=== PATIENT | female | born 1985 | race Caucasian/White ===

== ENCOUNTER 2020-06-06 20:37 | Emergency (ER) | payer SELFPAY ==
[~2020-06-06] VITALS: Ht 170.2 cm; Wt 86.3 kg
--- NOTE | 2020-06-06 20:42 | PHYS DOC ---
Past History Past Surgical History: Hysterectomy General Adult HPI: HPI: ".. I was feeding he cow..s... and one of the bags did not break open.. so I jumped down off the tractor... and immediately heard a pop and got severe pain in my left knee. This was about 5pm.. and I have not been able to do anything to get relief..... I hurt really bad on the inside of my Lt knee..." Patient is a 34 year old female who presents with above hx and complaint of left knee injury. Patient has marked pain on palpation of medial collateral ligament of left knee. Can do straight leg lift. Distal neurovascular is equal to right leg. No upper leg tenderness. No lower leg tenderness. There is marked swelling. Unable to flex or extend because of pain. Patient denies other injury. Patient has not follow-up with primary since moving from [facility]. Patient denies any previous knee injury. Review of Systems: Review of Systems: Constitutional: Denies fever or chills Eyes: Denies change in visual acuity HENT: Denies nasal congestion or sore throat Respiratory: Denies cough or shortness of breath Cardiovascular: Denies chest pain or edema GI: Denies abdominal pain, nausea, vomiting, bloody stools or diarrhea : Denies dysuria Musculoskeletal: Complains of severe left knee pain Integument: Denies rash Neurologic: Denies headache, focal weakness or sensory changes Endocrine: Denies polyuria or polydipsia Lymphatic: Denies swollen glands Psychiatric: Denies depression or anxiety Family History: Family History: Noncontributory Current Medications: Current Meds: See nursing for home meds Allergies: Allergies: No known drug allergies Physical Exam: PE: Constitutional: Moderate acute distress, non-toxic appearance. Tearful HENT: Normocephalic, atraumatic, bilateral external ears normal, oropharynx moist, no oral exudates, nose normal. [] Eyes: PERRLA, EOMI, conjunctiva normal, no discharge. [] Neck: Normal range of motion, no tenderness, supple, no stridor. [] Cardiovascular: Tachycardia heart rate regular rhythm, no murmur [] Lungs & Thorax: Bilateral breath sounds equal apex on auscultation [] Abdomen: Bowel sounds decreased, soft, no tenderness, no masses, no pulsatile masses. Old surgery scars Skin: Warm, dry, no erythema, no rash. [] Back: No tenderness, no CVA tenderness. [] Extremities: No tenderness, no cyanosis, no clubbing, ROM intact, no edema. Except findings in left knee as per HPI Neurologic: Alert and oriented X 3, normal motor function, normal sensory function, no focal deficits noted. [] Psychologic: Affect anxious, judgement normal, mood normal. [] EKG: EKG: [] Radiology/Procedures: Radiology/Procedures: [address] [address] IMAGING REPORT Signed PATIENT: MITCHEL GUSTAFSON ACCOUNT: [id number] : 1985 LOCATION: ER AGE: 34 SEX: F EXAM STATUS: DEP ER ORD. PHYSICIAN: ARNULFO OCRDOVA MD REASON: Left knee injury, medial and posterior pain PROCEDURE: KNEE LEFT 4V EXAM: AP, oblique, lateral and tangential patellar views left knee DATE: 06/06/2020 9:09 PM INDICATION: Reason: Left knee injury, medial and posterior pain / Spl. Instructions: / History: COMPARISON: No Prior FINDINGS: No evidence of acute fracture or dislocation. Joint spaces are preserved without significant degenerative/proliferative change. No joint effusion. Neutral patellar tracking. IMPRESSION: No evidence of acute fracture or dislocation. Electronically signed by: Josh Lott MD (06/06/2020 11:11 PM) [facility] DICTATED AND SIGNED BY: JOSH LOTT MD DATE: 06/06/20 7735 CC: ARNULFO CORDOVA MD; PCP,NO ~MTH0 0 My interpretation of x-ray showed no obvious displaced fracture. Does have significant edema. [] Heart Score: Risk Factors: Risk Factors: DM, Current or recent (<one month) smoker, HTN, HLP, family history of CAD, obesity. Risk Scores: Score 0 - 3: 2.5% MACE over next 6 weeks - Discharge Home Score 4 - 6: 20.3% MACE over next 6 weeks - Admit for Clinical Observation Score 7 - 10: 72.7% MACE over next 6 weeks - Early Invasive Strategies Course & Med Decision Making: Course & Med Decision Making Pertinent Labs and Imaging studies reviewed. (See chart for details) Distal neurovascular intact after application of splint. Patient use crutches. Patient elevate knee. Patient take Tylenol and ibuprofen for pain. For marked pain may take Vicoprofen up to 4 times a day. Patient to call for follow-up appointment in the orthopedic clinic at [place] [phone]. Return if any concerns. Impression: 1. Left knee sprain strain-medial collateral ligament tear [] Dragon Disclaimer: Dragon Disclaimer: This electronic medical record was generated, in whole or in part, using a voice recognition dictation system. Departure Departure: Referrals: PCP,NO (PCP) Scripts Hydrocodone/Ibuprofen (HYDROCODONE-IBUPROFEN 7.5-200 ) 1 Each Tablet 1 TAB PO PRN Q6HRS PRN for PAIN, #30 TAB 0 Refills Prov: ARNULFO CORDOVA MD 06/06/20 Cory Disclaimer This chart was dictated in whole or in part using Voice Recognition software in a busy, high-work load, and often noisy Emergency Department environment. It may contain unintended and wholly unrecognized errors or omissions. Dragon Disclaimer This chart was dictated in whole or in part using Voice Recognition software in a busy, high-work load, and often noisy Emergency Department environment. It may contain unintended and wholly unrecognized errors or omissions. Dragon Disclaimer This chart was dictated in whole or in part using Voice Recognition software in a busy, high-work load, and often noisy Emergency Department environment. It may contain unintended and wholly unrecognized errors or omissions. ARNULFO CORDOVA MD Jun 06, 2020 20:42
[2020-06-06] MEDS ORDERED: MORPHINE SULFATE 10 MG/ML SYRINGE. SQ ONE (21:00)
[2020-06-06] MEDS ORDERED: HYDR-1179 PO (21:47)
[2020-06-06 21:55] VITALS: BP 186/100
--- NOTE | 2020-06-06 23:13 | RAD ---
EXAM: AP, oblique, lateral and tangential patellar views left knee DATE: 06/06/2020 9:09 PM INDICATION: Reason: Left knee injury, medial and posterior pain / Spl. Instructions: / History: COMPARISON: No Prior FINDINGS: No evidence of acute fracture or dislocation. Joint spaces are preserved without significant degenera tive/proliferative change. No joint effusion. Neutral patellar tracking. IMPRESSION: No evidence of acute fracture or dislocation. Electronically signed by: Josh Lott MD (06/06/2020 11:11 PM) [place]
== END 2020-06-06 22:02 | disposition home or self-care (01) ==
LOC: ER 20:37
DX: S83.412A Sprain of medial collateral ligament of left knee, initial encounter (principal); X50.9XXA Other and unspecified overexertion or strenuous movements or postures, initial encounter; Y93.39 Activity, other involving climbing, rappelling and jumping off; Y92.89 Other specified places as the place of occurrence of the external cause; Y99.8 Other external cause status
CPT/HCPCS: 29505; 73564; 96372; 99283; J2270